=== PATIENT | female | born 1990 | race African-American/Black ===

== ENCOUNTER 2017-10-23 06:45 | Emergency (ER) | payer MEDICAID, OTHER ==
[~2017-10-23] VITALS: Ht 165.1 cm; Wt 90.7 kg
[2017-10-23 10:30] VITALS: BP 117/87
== END 2017-10-23 10:59 | disposition home or self-care (01) ==
LOC: ER 06:45
DX: S83.91XA Sprain of unspecified site of right knee, initial encounter (principal); W18.30XA Fall on same level, unspecified, initial encounter; Y93.89 Activity, other specified; Y99.8 Other external cause status; Y92.89 Other specified places as the place of occurrence of the external cause
CPT/HCPCS: 73562

== ENCOUNTER 2019-10-18 20:08 | Emergency (ER) | payer MEDICAID, OTHER ==
[~2019-10-18] VITALS: Ht 165.1 cm; Wt 81.6 kg
[2019-10-18 20:20] VITALS: BP 153/88
[2019-10-18] MEDS ORDERED: KETOROLAC TROMETH 60MG/2ML VIAL IM ONE (20:30)
[2019-10-18] MEDS ORDERED: HYDROcodone-ACET 10/325MG TAB PO ONE (20:30)
[2019-10-18] MEDS ORDERED: SILVER SULFADIAZINE 1 % TOPICAL CREAM 50GM TOP ONE (20:45)
== END 2019-10-18 21:40 | disposition left against medical advice (07) ==
LOC: ER 20:11
DX: T23.152A Burn of first degree of left palm, initial encounter (principal); X15.2XXA Contact with hotplate, initial encounter; Y93.G3 Activity, cooking and baking; Y92.89 Other specified places as the place of occurrence of the external cause; Y99.8 Other external cause status
CPT/HCPCS: 16000; 96372; 99284; J1885

== ENCOUNTER 2020-07-11 17:09 | Inpatient (IN) | payer MEDICAID ==
[~2020-07-11] VITALS: Ht 165.1 cm; Wt 79.4 kg
[2020-07-11] MEDS: SODIUM CHLORIDE 0.9% 1,000 ML IVB ONE ×2 (17:20→18:20)
[2020-07-11 18:20] LABS: Basophils # (auto) 0 10 ^3/uL (0-0.2); Basophils % (auto) 0.2 % (0.0-2.0); Eosinophils # (auto) 0 10 ^3/uL (0-0.8); Hemoglobin 13.6 g/dL (12.2-16.2); Lymphocytes # (auto) 1.5 10 ^3/uL (0.4-5.4); Mean Corpuscular Hemoglobin 27.4 pg (28.0-32.0); Mean Corpuscular Hgb Conc. 34.1 g/dL (32.0-36.0); Mean Corpuscular Volume 80.5 fL (80.0-100.0); Monocytes # (auto) 0.8 10 ^3/uL (0-1.3); Monocytes % (auto) 9.8 % (0.0-12.0); Neutrophils # (auto) 5.7 10 ^3/uL (1.6-8.6); Nucleated Red Blood Cells % 0.1 %; Platelet Count (auto) 195 10^3/uL (140-450); Red Blood Cells 4.96 10^6/uL (4.0-5.20); Red Cell Distribution Width 13.4 % (11.8-14.3); White Blood Cell 8.1 10^3/uL (4.4-10.8)
[2020-07-11 18:37] LABS: Albumin 3.7 g/dL (3.4-5.0); BUN/Creatinine Ratio 13.6; Potassium 3.2 mmol/L (3.5-5.1)
[2020-07-11 18:39] LABS: Bilirubin, Total 0.6 mg/dL (0.2-1.0); Lactic Acid w/Reflex 2.5 mmol/L (0.4-2.0); Total Protein 7.6 g/dL (6.4-8.2)
[2020-07-11 18:42] LABS: INR 1.02 (0.9-1.15); Partial Thromboplastin Time 27.6 sec (23.0-31.2)
[2020-07-11 18:53] LABS: Beta HCG, Quantitative 8835 mlU/mL (1-3); Thyroid Stimulating Hormone < 0.01 uIU/mL (0.358-3.74)
[2020-07-11 19:39] LABS: Magnesium 1.8 mg/dL (1.6-2.6)
[2020-07-11] MEDS ORDERED: POTASSIUM CHL 20 Meq TABLET PO ONE (23:30)
[2020-07-11] MEDS ORDERED: ACETAMINOPHEN 325 MG TAB PO PRN (23:30)
[2020-07-11] MEDS ORDERED: NITROGLYCERIN 0.4 MG SL TAB SL PRN (23:30)
[2020-07-11] MEDS ORDERED: DOCUSATE SOD 100 MG CAP PO PRN (23:30)
[2020-07-11] MEDS ORDERED: MORPHINE SULF INJ 2 MG/ML SYRINGE 1ML IV PRN (23:30)
[2020-07-11] MEDS ORDERED: ONDANSETRON HCL 4 MG/2 ML VIAL IV PRN (23:30)
[2020-07-12 00:30] VITALS: BP 109/64
[2020-07-12] MEDS ORDERED: PREN27TA7 PO (01:36)
[2020-07-12] MEDS ORDERED: PROP60CA34 PO (01:36)
[2020-07-12 01:37] LABS: Basophils # (auto) 0 10 ^3/uL (0-0.2); Basophils % (auto) 0.1 % (0.0-2.0); Eosinophils # (auto) 0 10 ^3/uL (0-0.8); Hematocrit 36.7 % (36.0-46.0); Hemoglobin 12.5 g/dL (12.2-16.2); Lymphocytes # (auto) 3.2 10 ^3/uL (0.4-5.4); Lymphocytes % (auto) 39.6 % (10.0-50.0); Mean Corpuscular Hemoglobin 27.2 pg (28.0-32.0); Mean Corpuscular Volume 79.9 fL (80.0-100.0); Monocytes # (auto) 0.9 10 ^3/uL (0-1.3); Monocytes % (auto) 11.3 % (0.0-12.0); Neutrophils # (auto) 3.9 10 ^3/uL (1.6-8.6); Nucleated Red Blood Cells % 0.1 %; Platelet Count (auto) 189 10^3/uL (140-450); Red Cell Distribution Width 13.6 % (11.8-14.3); White Blood Cell 8.1 10^3/uL (4.4-10.8)
[2020-07-12] MEDS: SODIUM CHLORIDE 0.9% 1,000 ML IV SCH ×2 (01:51→16:34)
[2020-07-12 02:19] LABS: BUN/Creatinine Ratio 16.7; Calcium 9.1 mg/dL (8.5-10.1); Potassium 3.5 mmol/L (3.5-5.1)
[2020-07-12 02:21] LABS: Bilirubin, Total 0.5 mg/dL (0.2-1.0); Total Protein 6.6 g/dL (6.4-8.2)
[2020-07-12 02:45] LABS: Urine Bacteria NONE SEEN /hpf (None Seen); Urine Blood Negative /uL (Negative); Urine Specific Gravity 1.006 (1.001-1.035); Urine WBC 3 /hpf (0 - 5)
[2020-07-12 05:00] VITALS: BP 110/46
[2020-07-12 07:48] LABS: Basophils # (auto) 0 10 ^3/uL (0-0.2); Eosinophils # (auto) 0 10 ^3/uL (0-0.8); Hematocrit 35.1 % (36.0-46.0); Hemoglobin 11.8 g/dL (12.2-16.2); Lymphocytes # (auto) 3.2 10 ^3/uL (0.4-5.4); Lymphocytes % (auto) 47.3 % (10.0-50.0); Mean Corpuscular Hemoglobin 27.2 pg (28.0-32.0); Mean Corpuscular Hgb Conc. 33.7 g/dL (32.0-36.0); Mean Corpuscular Volume 80.6 fL (80.0-100.0); Monocytes # (auto) 0.9 10 ^3/uL (0-1.3); Monocytes % (auto) 13.5 % (0.0-12.0); Neutrophils # (auto) 2.7 10 ^3/uL (1.6-8.6); Neutrophils % (auto) 39.2 % (37.0-80.0); Nucleated Red Blood Cells % 0.1 %; Platelet Count (auto) 179 10^3/uL (140-450); Red Blood Cells 4.36 10^6/uL (4.0-5.20); Red Cell Distribution Width 13.9 % (11.8-14.3); White Blood Cell 6.8 10^3/uL (4.4-10.8)
[2020-07-12 07:58] LABS: Magnesium 1.9 mg/dL (1.6-2.6); Phosphorus 4.9 mg/dL (2.5-4.90)
[2020-07-12 08:02] LABS: Albumin 3.1 g/dL (3.4-5.0); Potassium 3.7 mmol/L (3.5-5.1)
[2020-07-12 08:05] LABS: BUN/Creatinine Ratio 17.9; Bilirubin, Total 0.4 mg/dL (0.2-1.0); Total Protein 6.2 g/dL (6.4-8.2)
[2020-07-12] MEDS: MULTIPLE VITAMIN TAB PO SCH (08:58)
[2020-07-12] MEDS: ASCORBIC ACID 500 MG TAB PO SCH ×2 (08:58→21:58)
[2020-07-12 09:00] VITALS: BP 101/44
[2020-07-12] MEDS: ASPirin 81 mg TAB PO SCH (10:00)
[2020-07-12 17:00] VITALS: BP 114/41
[2020-07-12 20:00] VITALS: BP 130/59
[2020-07-12 22:00] VITALS: BP 130/59
[2020-07-12] MEDS ORDERED: LOPERAMIDE HCL 2 MG CAP PO PRN (22:15)
[2020-07-13 05:00] VITALS: BP 110/56
[2020-07-13 08:00] VITALS: BP 114/64
[2020-07-13] MEDS: SODIUM CHLORIDE 0.9% 1,000 ML IV SCH (08:50)
[2020-07-13 09:00] VITALS: BP 114/64
[2020-07-13] MEDS: ASPirin 81 mg TAB PO SCH (09:39)
[2020-07-13] MEDS: ASCORBIC ACID 500 MG TAB PO SCH (09:39)
[2020-07-13] MEDS: MULTIPLE VITAMIN TAB PO SCH (09:39)
[2020-07-13 13:00] VITALS: BP 121/61
== END 2020-07-13 14:05 | disposition home or self-care (01) | DRG 566 ==
LOC: EDBD 17:09 → ER 17:09 → TELE 17:10 → TELE-EAST 23:45 → TELE-CENTR 07-12 10:51
PROVIDERS: ADMIT Nurse Practitioner Family; ATTEND Nurse Practitioner Family
DX: O99.281 Endocrine, nutritional and metabolic diseases complicating pregnancy, first trimester (principal); O99.341 Other mental disorders complicating pregnancy, first trimester; O16.1 Unspecified maternal hypertension, first trimester; E78.5 Hyperlipidemia, unspecified; F41.9 Anxiety disorder, unspecified; E05.00 Thyrotoxicosis with diffuse goiter without thyrotoxic crisis or storm; Z3A.01 Less than 8 weeks gestation of pregnancy; Z82.49 Family history of ischemic heart disease and other diseases of the circulatory system; Z83.49 Family history of other endocrine, nutritional and metabolic diseases; Z20.828 Contact with and (suspected) exposure to other viral communicable diseases; R00.0 Tachycardia, unspecified
CPT/HCPCS: 36415; 76801; 80053; 81001; 82550; 83605; 83735; 83880; 84100; 84443; 84484; 84702; 85025; 85610; 85730; 87040; 87045; 87081; 87086; 87205; 87426; 87427; 87493; 93005; 96360; G0378

== ENCOUNTER 2022-10-04 09:36 | Emergency (ER) | payer MEDICAID ==
[~2022-10-04] VITALS: Ht 165.1 cm; Wt 99.5 kg
[~2022-10-04 09:36] MED LIST: PREN27TA7 PO
[2022-10-04] MEDS ORDERED: methylPREDNISolone SOD SUCC 125 MG/2 ML VL IV ONE (10:45)
[2022-10-04] MEDS ORDERED: SODIUM CHLORIDE 0.9% 1,000 ML IV ONE (10:45)
[2022-10-04 11:14] LABS: Basophils # (auto) 0 10 ^3/uL (0-0.2); Basophils % (auto) 0.2 % (0.0-2.0); Eosinophils # (auto) 0 10 ^3/uL (0-0.8); Hematocrit 40.3 % (36.0-46.0); Lymphocytes # (auto) 1.2 10 ^3/uL (0.4-5.4); Lymphocytes % (auto) 16.9 % (10.0-50.0); Mean Corpuscular Hemoglobin 28.6 pg (28.0-32.0); Mean Corpuscular Hgb Conc. 34.7 g/dL (32.0-36.0); Mean Corpuscular Volume 82.6 fL (80.0-100.0); Monocytes # (auto) 0.5 10 ^3/uL (0-1.3); Monocytes % (auto) 6.5 % (0.0-12.0); Neutrophils # (auto) 5.4 10 ^3/uL (1.6-8.6); Neutrophils % (auto) 76.4 % (37.0-80.0); Nucleated Red Blood Cells % 0.3 %; Red Blood Cells 4.87 10^6/uL (4.0-5.20); Red Cell Distribution Width 15.7 % (11.8-14.3); White Blood Cell 7.1 10^3/uL (4.4-10.8)
[2022-10-04] MEDS ORDERED: PRED20TA2 PO (11:18)
[2022-10-04 11:28] LABS: Albumin 3.9 g/dL (3.4-5.0); Calcium 8.1 mg/dL (8.5-10.1); Potassium 3.3 mmol/L (3.5-5.1)
[2022-10-04 11:32] LABS: BUN/Creatinine Ratio 6.8; Bilirubin, Total 0.3 mg/dL (0.2-1.0)
[2022-10-04 11:41] LABS: Urine Bacteria NONE SEEN /hpf (None Seen); Urine Blood 3+ /uL (Negative); Urine Specific Gravity 1.011 (1.001-1.035); Urine WBC 16 /hpf (0 - 5)
[2022-10-04] MEDS ORDERED: diphenhdrAMINE HCL 50 MG/1 ML VL IV ONE (11:45)
[2022-10-04] MEDS ORDERED: CEPH-510 PO (14:35)
[2022-10-04] MEDS ORDERED: cefTRIAXone 1GM/50ML D5W 50 ML IV ONE (14:45)
[2022-10-04 16:59] VITALS: BP 133/70
== END 2022-10-04 17:00 | disposition home or self-care (01) ==
LOC: ER 09:36 → EDBD 09:36 → ER 17:00
DX: T78.40XA Allergy, unspecified, initial encounter (principal); N39.0 Urinary tract infection, site not specified; I10 Essential (primary) hypertension; E78.5 Hyperlipidemia, unspecified; Z79.899 Other long term (current) drug therapy; Y92.89 Other specified places as the place of occurrence of the external cause; Z20.822 Contact with and (suspected) exposure to COVID-19
CPT/HCPCS: 36415; 71045; 80053; 81001; 84443; 85025; 87426; 96361; 96365; 96375; 99284; J0696; J1200; J2930; J7030